=== PATIENT | male | born 1990 | race Caucasian/White ===

== ENCOUNTER 2021-03-16 07:27 | Emergency (ER) | payer OTHER ==
[2021-03-16] MEDS ORDERED: CYCLOBENZAPRINE10 MG PO (09:32)
== END 2021-03-16 09:56 | disposition home or self-care (01) ==
LOC: ER1 07:27
DX: S39.012A Strain of muscle, fascia and tendon of lower back, initial encounter (principal); Z90.49 Acquired absence of other specified parts of digestive tract; X50.0XXA Overexertion from strenuous movement or load, initial encounter
CPT/HCPCS: 96372; 99283; J1100; J1885